=== PATIENT | male | born 1970 | race Caucasian/White ===

== ENCOUNTER 2022-12-30 05:54 | Day surgery (SDC) | payer OTHER ==
[~2022-12-30] VITALS: Ht 175.3 cm; Wt 111.2 kg
[2022-12-30] VITALS (11 sets, daily range): BP systolic 113–130; BP diastolic 67–81
[~2022-12-30 05:54] MED LIST: LISI5 PO; PRAM.125 PO
--- NOTE | 2022-12-30 06:07 | NUR ---
Ambulatory in Day Surgery. History, Chart, Medications and Allergies reviewed before start of procedure.Patient confirms NPO status and agrees with scheduled surgery. Pre-Op teaching done. Pt verbalizes understanding. Lungs clear T/O to Auscultation. Patient States Post-Procedure ride home has been arranged.
[2022-12-30 07:05] LABS: Bun/Creatinine Ratio 19.2 (12.0-20.0); Calcium, Blood 8.9 mg/dL (8.5-10.1); Creatinine, Blood 0.94 mg/dL (0.60-1.20); Potassium, Blood 3.9 mmol/L (3.5-5.5)
--- NOTE | 2022-12-30 10:29 | NUR ---
Patient up to Ambulate independently. Gait steady. Dressing to procedure sites clean, dry, intact with no visible drainage, swelling, erythema or bruising noted. Discharge instructions reviewed with patient. Patient verbalizes understanding. Copy given to patient to take home. Patient States Post-Procedure ride home has been arranged. Discharged via wheelchair to private car for ride home.
== END 2022-12-30 10:32 | disposition home or self-care (01) ==
LOC: ORSCMMR 05:54 → ORD 07:30 → ORSCMMR 10:32
PROVIDERS: Surgery
PROC: 0WUF4JZ Supplement Abdominal Wall with Synthetic Substitute, Percutaneous Endoscopic Approach (ICD-10-PCS; principal; 2022-12-30 07:30)
PROC: 0JBN0ZX Excision of Right Lower Leg Subcutaneous Tissue and Fascia, Open Approach, Diagnostic (ICD-10-PCS; principal; 2022-12-30 07:30)
DX: K42.0 Umbilical hernia with obstruction, without gangrene (principal); L28.0 Lichen simplex chronicus; I10 Essential (primary) hypertension; G47.33 Obstructive sleep apnea (adult) (pediatric); Z87.891 Personal history of nicotine dependence; E11.9 Type 2 diabetes mellitus without complications; F43.10 Post-traumatic stress disorder, unspecified; F32.A Depression, unspecified; Z79.899 Other long term (current) drug therapy
CPT/HCPCS: 80048; 82947; 88305; 88312; 93005; 93010; A9270; C1781; J0690; J1100; J1885; J2405; J2704; J3010; J7120